=== PATIENT | male | born 1990 | race American Indian/Alaskan Native ===

== ENCOUNTER 2018-12-23 15:16 | Emergency (ER) | payer OTHER ==
[2018-12-23 15:39] VITALS: BP 105/62
--- NOTE | 2018-12-23 15:41 | Emergency Department Report ---
Chief Complaint: Upper Respiratory Infection Stated Complaint: COUGHING Time Seen by Provider: 12/23/18 15:37 - HPI History of Present Illness: This is a 28 y.o. male that presents with cough for 4 weeks. Patient states the chemicals at his job is causing him to cough. Patient states he only cough while at work. - ROS Review of Systems: cough - Exam Vital Signs: Vital Signs 12/23/18 15:38 Temperature 98 F Pulse Rate 81 Respiratory 18 Rate Blood Pressure 105/62 O2 Sat by Pulse 100 Oximetry MSE screening note: Focused history and physical exam performed. Due to findings the following was ordered: CXR Fast track for further evaluation. ED Disposition for MSE Condition: Stable
--- NOTE | 2018-12-23 16:09 | Emergency Department Report ---
Minor Respiratory - HPI Chief Complaint: Upper Respiratory Infection Stated Complaint: COUGHING Time Seen by Provider: 12/23/18 15:37 Duration: 1 week Severity: mild Minor Respiratory: Yes Cough (patient states he has a nonproductive cough whenever he is at work. 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 Patient's believe that this some type of chemical in his job is making cough. When he is at home and when he is outdoors he has no cough. Patient was sent in by his job to get a note that will allow him to wear a mask at work.) ED Review of Systems ROS: Stated complaint: COUGHING Other details as noted in HPI Comment: All other systems reviewed and negative ED Past Medical Hx - Past Medical History Previous Medical History?: Yes Additional medical history: bronchitis - Social History Smoking Status: Current Every Day Smoker Substance Use Type: None Minor Respiratory Exam - Exam General: Vital signs noted. No distress. Alert and acting appropriately. HEENT: Yes Moist Mucous Membranes, No Pharyngeal Erythema, No Pharyngeal Exudates, No Rhinorrhea, No Conjuctival Injection, No Frontal Tenderness, No Maxillary Tenderness Ear: Neither TM Bulge, Neither TM Erythema, Neither EAC Pain, Neither EAC Discharge Neck: Yes Supple, No Adenopathy Lungs: Yes Good Air Exchange, No Wheezes, No Ronchi, No Stridor, No Cough, No Labored Respirations, No Retractions, No Use of Accessory Muscles, No Other Abnormal Lung Sounds Heart: Yes Regular, No Murmur Abdomen: Yes Normal Bowel Sounds, No Tenderness, No Peritoneal Signs Skin: No Rash, No Edema Neurologic: Alert and oriented, no deficits. Musculoskeletal: Unremarkable. ED Course Vital Signs 12/23/18 15:38 Temperature 98 F Pulse Rate 81 Respiratory 18 Rate Blood Pressure 105/62 O2 Sat by Pulse 100 Oximetry ED Medical Decision Making - Medical Decision Making Patient has a nonmedical emergency at this time. He is opted not pay the $150 TODAY which I don't believe is necessary anyway since the patient just needs a note stating that he can wear a mask at work. Such noted. Provided the patient be discharged Critical care attestation.: If time is entered above; I have spent that time in minutes in the direct care of this critically ill patient, excluding procedure time. ED Disposition Clinical Impression: Exposure to chemical inhalation Disposition: MED SCREENING EXAM-LEFT Is pt being admited?: No Does the pt Need Aspirin: No Condition: Stable Forms: Work/School Release Form(ED) Time of Disposition: 16:09
== END 2018-12-23 17:34 | disposition left against medical advice (07) ==
LOC: ED 15:16
DX: T59.91XA Toxic effect of unspecified gases, fumes and vapors, accidental (unintentional), initial encounter (principal); F17.200 Nicotine dependence, unspecified, uncomplicated; Y92.89 Other specified places as the place of occurrence of the external cause
CPT/HCPCS: 99282

== ENCOUNTER 2019-08-04 01:39 | Emergency (ER) | payer OTHER ==
[2019-08-04 01:49] VITALS: BP 104/67
[2019-08-04] MEDS ORDERED: IBUPROFEN 800 MG TAB PO ONE (02:08)
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
== END 2019-08-04 02:39 | disposition home or self-care (01) ==
LOC: ED 01:39
DX: K02.9 Dental caries, unspecified (principal); F17.200 Nicotine dependence, unspecified, uncomplicated; Z79.899 Other long term (current) drug therapy; V49.49XA Driver injured in collision with other motor vehicles in traffic accident, initial encounter; Y93.89 Activity, other specified; Y92.410 Unspecified street and highway as the place of occurrence of the external cause; Y99.8 Other external cause status

== ENCOUNTER 2021-12-21 05:33 | Emergency (ER) | payer SELFPAY ==
--- NOTE | 2021-12-21 07:46 | Emergency Department Report ---
Vomiting/Diarrhea - HPI Chief Complaint: Nausea/Vomiting/Diarrhea Stated Complaint: CANNOT HOLD DOWN FOOD PAST WEEK Time Seen by Provider: 12/21/21 07:31 Other History: This is a pleasant 31-year-old male who presents emergency department chief complaint of intermittent nausea, vomiting, diarrhea that has been present over the past 3 days. He states this initially started after eating some [place] fries that he thinks were undercooked. He states every time he is eaten since he has had some vomiting. He is able hold down fluids well. He states he will get intermittent abdominal cramping which is not present currently. He denies any bilious or bloody vomit, bloody stools or melena. Denies any associated fever, chills, night sweats, headache, dizziness, blurry vision, chest pain, shortness of breath, weakness or any other associated symptoms. He denies any known past medical history, current medication use or known allergies to medications. Denies any previous surgeries. ED Review of Systems ROS: Stated complaint: CANNOT HOLD DOWN FOOD PAST WEEK Other details as noted in HPI Comment: All other systems reviewed and negative Constitutional: denies: chills, fever Eyes: denies: eye pain, eye discharge, vision change ENT: denies: ear pain, throat pain Respiratory: denies: cough, shortness of breath, wheezing Cardiovascular: denies: chest pain, palpitations Endocrine: no symptoms reported Gastrointestinal: as per HPI, abdominal pain, nausea, vomiting, diarrhea Genitourinary: denies: urgency, dysuria Musculoskeletal: denies: back pain, joint swelling, arthralgia Skin: denies: rash, lesions Neurological: denies: headache, weakness, paresthesias Psychiatric: denies: anxiety, depression Hematological/Lymphatic: denies: easy bleeding, easy bruising ED Past Medical Hx - Past Medical History Additional medical history: bronchitis. shoulder dislocation - Social History Smoking Status: Current Every Day Smoker Substance Use Type: None - Medications Home Medications: Home Medications Medication Instructions Recorded Confirmed Last Taken Type Amoxicillin [Trimox CAP] 500 mg PO Q8H #30 capsule 08/04/19 Unknown Rx Chlorhexidine Mouthwash [Peridex] 15 ml MM BID #1 bottle 08/04/19 Unknown Rx Ibuprofen [Motrin 800 MG tab] 800 mg PO Q8HR PRN #30 tablet 08/04/19 Unknown Rx Dicyclomine [Bentyl] 10 mg PO QID #20 capsule 12/21/21 Unknown Rx Ondansetron [Zofran Odt] 4 mg PO Q8HR #30 tab.rapdis 12/21/21 Unknown Rx Vomiting Diarrhea Exam - Exam General: Vital signs noted. No distress. Alert and acting appropriately. HEENT: Yes Moist Mucous Membranes, No Pharyngeal Erythema, No Pharyngeal Exudates, No Rhinorrhea, No Conjuctival Injection, No Frontal Tenderness, No Maxillary Tenderness Neck: No Adenopathy, No Rigidity Lungs: Yes Clear Lung Sounds, Yes Good Air Exchange, No Wheezes, No Stridor, No Cough, No Nasal Flaring, No Retractions, No Use of Accessory Muscles Heart exam: Regular: Yes, Murmur: No, Tachycardia: No Abdomen: Tenderness: No (Negative Reagan's point tenderness, negative Jorge sign, no rebound or guarding. Negative tenderness to palpation, negative psoas sign bilaterally.), Peritoneal Signs: No, Distention: No, Hyperactive Bowel sounds: No Skin exam: Rash: No, Edema: No, Normal turgor: Yes Neurologic: Alert and oriented, no deficits. Musculoskeletal: Unremarkable. ED Course Vital Signs 12/21/21 05:47 Temperature 97.4 F L Pulse Rate 68 Respiratory 18 Rate Blood Pressure 106/70 O2 Sat by Pulse 100 Oximetry ED Medical Decision Making - Medical Decision Making Patient is well-appearing, nontoxic no acute distress. His exam was benign. Vital signs are stable. I did offer to do a work-up including lab work, IV fluids and IV medications however he politely declined stating he just needed a note for work. I will treat him with Zofran and Bentyl at home and recommended strict return precautions for any change or worsening symptoms. I have a low suspicion for acute interabdominal inflammatory infectious process due to the lack of any physical exam findings. The patient understood he could return at any time if his symptoms change or worsen. He verbalized understanding of the diagnosis, treatment plan and follow-up instructions and all of his questions were answered. - Differential Diagnosis Enteritis, colitis, hyperemesis Critical care attestation.: If time is entered above; I have spent that time in minutes in the direct care of this critically ill patient, excluding procedure time. ED Disposition Clinical Impression: Nausea vomiting and diarrhea, Nonspecific abdominal pain Disposition: HOME / SELF CARE / HOMELESS Is pt being admited?: No Condition: Stable Instructions: Nausea and Vomiting, Adult, Diarrhea, Adult Prescriptions: Dicyclomine [Bentyl] 10 mg PO QID #20 capsule Ondansetron [Zofran Odt] 4 mg PO Q8HR #30 tab.rapdis Referrals: [facility] [Provider Group] - 3-5 Days Forms: Work/School Release Form(ED) Time of Disposition: 07:45
[2021-12-21 08:08] VITALS: BP 99/64
== END 2021-12-21 08:06 | disposition home or self-care (01) ==
LOC: ED 05:33
DX: R19.7 Diarrhea, unspecified (principal); R11.2 Nausea with vomiting, unspecified; R10.9 Unspecified abdominal pain; F17.200 Nicotine dependence, unspecified, uncomplicated
CPT/HCPCS: 99282